=== PATIENT | male | born 1930 | race Caucasian/White ===

== ENCOUNTER 2017-09-01 18:12 | Inpatient (IN) | payer MEDICARE, BC ==
[~2017-09-01] VITALS: Ht 167.6 cm; Wt 75.5 kg
[2017-09-01 19:00] VITALS: BP 151/63
[2017-09-01 19:03] VITALS: BP 151/63
[2017-09-01 19:33] VITALS: BP 167/64
[2017-09-01 20:10] LABS: BASO # 0.1 x10^3/uL (0.0-0.2); BASO % 1 % (0-3); EOS # 0.2 x10^3/uL (0.0-0.7); EOS % 1 % (0-3); HEMATOCRIT 39.6 % (39.0-53.0); HEMOGLOBIN 13.6 g/dL (13.0-17.5); LYMPH # 2.6 x10^3/uL (1.0-4.8); LYMPH % 17 % (24-48); MEAN CORPUSCULAR HEMOGLOBIN 33 pg (25-35); MEAN CORPUSCULAR HGB CONC 34 g/dL (31-37); MEAN CORPUSCULAR VOLUME 96 fL (79-100); MONO # 1.3 x10^3/uL (0.0-1.1); MONO % 8 % (0-9); NEUT # 11.3 x10^3uL (1.8-7.7); NEUT % 73 % (31-73); PLATELET COUNT 183 x10^3/uL (140-400); RED BLOOD COUNT 4.12 x10^6/uL (4.30-5.70); RED CELL DISTRIBUTION WIDTH 13.8 % (11.5-14.5); WHITE BLOOD COUNT 15.4 x10^3/uL (4.0-11.0)
--- NOTE | 2017-09-01 20:23 | HP ---
ADMIT DATE: 09/01/2017 HISTORY OF PRESENT ILLNESS: The patient is an 86-year-old male patient who was seen today at his primary care physician's office, Dr. Potter and apparently, he was noted to be febrile and also lab work showed his leukocytosis. Apparently, he has seen at multiple places including [place] and there, he was told he has no flu, but Dr. Potter apparently started him on Tamiflu. The patient himself stated that he is just feeling tired, but denied any other complaint. PAST MEDICAL HISTORY: Significant for cervical spinal stenosis, generalized osteoarthritis, dizziness, and lightheadedness, gastroesophageal reflux disease, coronary artery disease, chronic constipation, pure hypercholesterolemia, hypothyroidism, actinic keratosis, angina pectoris, benign prostatic hypertrophy, and recurrent urinary tract infection. He is also known to have essential hypertension, chronic pain syndrome, depressive disorder, keratoconjunctivitis sicca and glaucoma as well as macular degeneration, osteoporosis without pathological fracture, and amnesia. PAST SURGICAL HISTORY: Significant for right knee surgery, partial thyroidectomy, and bilateral cataract extraction. ALLERGIES: I do not have any listing for his allergy. MEDICATIONS: He is currently on following medications: He is on Tylenol 650 mg every 4 hours as needed, amitriptyline 25 mg at bedtime, omega-3 fatty acids 3 capsules by mouth daily, chondroitin sulfate 1 capsule 3 times a day, Ecotrin 81 mg once a day, Fosamax 70 mg every week in the morning at least 30 minutes before first food beverage medications a day, glucosamine sulfate 500 mg 3 times a day, glucosamine chondroitin 1 tablet once a day, Imodium 2 mg tablet every 4 hours as needed. He is on Lotemax 0.5% ophthalmic suspension applied to both eyes daily. He is on Ocuvite 1 tablet once a day, magnesium hydroxide for milk of magnesia 30 mL p.o. daily p.r.n. for constipation, omeprazole 20 mg once a day, simvastatin 40 mg once a day, and Synthroid 112 mcg daily. PHYSICAL EXAMINATION: GENERAL: When I examined him, the patient was resting slightly propped up in bed, in no apparent respiratory distress, pale, but no jaundice, cyanosis, thyromegaly or edema. VITAL SIGNS: Her heart rate was 81, blood pressure 151/63, temperature was 98.1, respiratory rate was 18, and oxygen saturation was 95% on room air. HEAD, EYES, EARS, NOSE, AND THROAT: Showed normocephalic, atraumatic. NECK: Supple. HEART: Showed normal first and second heart sounds. No gallop, rub or murmur. CHEST: Clear to auscultation. No crepitation or rhonchi. ABDOMEN: Distended, soft, and nontender. NEUROLOGIC: He was awake, alert, hard of hearing, but otherwise her cranial nerves are intact. EXTREMITIES: He moves extremities without difficulty. He ambulates without assistance or assistive devices. PLAN: To arrange for him to have a chest x-ray, CBC, CMP, we will do rapid influenza A and B, and we will decide on further management accordingly. ZAIRA MACIAS MD DR: MIRTHA/george JOB#: [id number] / [id number]
[2017-09-01 20:24] LABS: ALBUMIN/GLOBULIN RATIO 0.8 (1.0-1.7); CALCIUM 8.8 mg/dL (8.5-10.1); CREATININE 1.4 mg/dL (0.7-1.3); GFR 48.1; POTASSIUM 3.6 mmol/L (3.5-5.1); TOTAL BILIRUBIN 0.8 mg/dL (0.2-1.0); TOTAL PROTEIN 6.7 g/dL (6.4-8.2)
[2017-09-01] MEDS ORDERED: GLUC-134 PO (21:03)
[2017-09-01] MEDS ORDERED: ASPI-630 PO (21:03)
[2017-09-01] MEDS ORDERED: CYCL1DRO OU (21:03)
[2017-09-01] MEDS ORDERED: LUTE1CAP5 PO (21:03)
[2017-09-01] MEDS ORDERED: OMEP20CA9 PO (21:03)
[2017-09-01] MEDS ORDERED: DEXT15DR5 EACHEYE (21:03)
[2017-09-01] MEDS ORDERED: OSEL75CA13 PO (21:03)
[2017-09-01] MEDS ORDERED: ALEN70TA5 PO (21:03)
[2017-09-01] MEDS ORDERED: OMEG-33 PO (21:03)
[2017-09-01] MEDS ORDERED: ACET325T9 PO (21:03)
[2017-09-01] MEDS ORDERED: LEVO112T4 PO (21:03)
[2017-09-01] MEDS ORDERED: SIMV40TA3 PO (21:03)
[2017-09-01] MEDS ORDERED: LOTE5DRO2 OU (21:03)
[2017-09-01] MEDS ORDERED: DONE5TAB7 PO (21:04)
[2017-09-01] MEDS ORDERED: LOPE2CAP88 PO (21:05)
[2017-09-01] MEDS ORDERED: MAGN400O7 PO (21:05)
--- NOTE | 2017-09-01 21:28 | RAD ---
EXAM: CHEST 1 VIEW History: Fever, leukocytosis COMPARISON: 05/23/2007 TECHNIQUE: Single portable radiograph of the chest FINDINGS: The cardiac silhouette is unremarkable. Scattered calcified granulomas unchanged. The costophrenic sulci are clear and well demarcated. The osseous structures and soft tissues are unremarkable. IMPRESSION: No radiographic evidence of an acute cardiopulmonary process. Electronically signed by: Julito Slater MD (09/01/2017 9:25 PM) [facility]
[2017-09-01 21:31] LABS: INFLUENZA A PATIENT NEGATIVE (NEGATIVE); INFLUENZA B PATIENT NEGATIVE (NEGATIVE)
[2017-09-01 21:40] LABS: % BANDS 1 % (0-9); % BASOS 1 % (0-3); % EOS 1 % (0-5); % LYMPHS 17 % (24-48); % MONOS 7 % (0-10); % MYELOS 1 % (0-0); % SEGS 72 % (35-66); PLT ESTIMATE ADEQUATE (ADEQUATE)
[2017-09-01] MEDS ORDERED: ACETAMINOPHEN 325 MG TABLET PO PRN (22:00)
[2017-09-01] MEDS ORDERED: MAGNESIUM HYDROXIDE 2,400 MG/30 ML ORAL.SUSP. PO PRN (22:00)
[2017-09-01] MEDS ORDERED: LOPERAMIDE 2 MG CAPSULE PO PRN (22:00)
[2017-09-01] MEDS: IV NORMAL SALINE 1,000ML 1,000 ML IV SCH (22:31)
[2017-09-01] MEDS: DONEPEZIL HCL 5 MG TABLET. PO SCH (22:37)
[2017-09-01] MEDS: ATORVASTATIN CALCIUM 20 MG TABLET PO SCH (22:37)
[2017-09-01 23:11] VITALS: BP 166/74
[2017-09-01] MEDS: cefTRIAXone IV Push 1 GM VIAL. IVP SCH (23:40)
[2017-09-02 05:36] VITALS: BP 146/84
[2017-09-02 08:39] LABS: BACTERIA,URINE FEW /HPF (0-FEW); BILIRUBIN,URINE NEG (NEG); CLARITY,URINE CLOUDY; COLOR,URINE YELLOW; GLUCOSE,URINE NEG (NEG); NITRITE,URINE NEG (NEG); RBC,URINE 0 /HPF (0-2); SQUAMOUS EPITHELIAL CELL,UR OCC /LPF; UROBILINOGEN,URINE 0.2 mg/dL (0.2 mg/dL); WBC,URINE 0 /HPF (0-4)
[2017-09-02 08:40] LABS: AMORPHOUS SEDIMENT,UR PRESENT /HPF
[2017-09-02] MEDS: AZITHROMYCIN 250 MG TABLET. PO SCH (10:01)
[2017-09-02] MEDS: ASPIRIN 81 MG TAB.CHEW PO SCH (10:01)
[2017-09-02] MEDS: LEVOTHYROXINE 112 MCG TABLET PO SCH (10:01)
[2017-09-02] MEDS: LACTOBACILLUS RHAMNOSUS GG 1 CAPSULE. PO SCH ×2 (10:01→21:06)
[2017-09-02] MEDS: POLYVINYL ALCOHOL 1.4% OPHTH SOLUTION 15ML BOTTLE. OU SCH ×3 (10:02→21:06)
[2017-09-02] MEDS: LOTEPREDNOL ETAB 0.5% OPHTH SUSPENSION 5ML BOTTLE. OU SCH (10:02)
[2017-09-02] MEDS: cycloSPORINE 0.05% OPTH 1 DROP DROPERETTE OU SCH ×2 (10:02→21:06)
[2017-09-02] MEDS: PANTOPRAZOLE 40 MG TABLET. PO SCH (10:02)
[2017-09-02] MEDS: OMEGA-3 FATTY ACIDS/FISH OIL 1,000 MG CAPSULE. PO SCH ×2 (10:02→21:06)
[2017-09-02] MEDS: GLUCOSAMINE/CHOND 500/400MG CAPSULE PO SCH (10:02)
[2017-09-02] MEDS: MULTIVITAMIN I-VITE TABLET. PO SCH (10:02)
[2017-09-02 11:14] VITALS: BP 164/71
[2017-09-02] MEDS: IV NORMAL SALINE 1,000ML 1,000 ML IV SCH (11:56)
[2017-09-02 15:49] VITALS: BP 170/82
[2017-09-02 19:10] VITALS: BP 166/71
[2017-09-02] MEDS: ATORVASTATIN CALCIUM 20 MG TABLET PO SCH (21:06)
[2017-09-02] MEDS: DONEPEZIL HCL 5 MG TABLET. PO SCH (21:06)
[2017-09-02 22:45] VITALS: BP 160/68
[2017-09-02] MEDS: cefTRIAXone IV Push 1 GM VIAL. IVP SCH (23:27)
[2017-09-03] MEDS: IV NORMAL SALINE 1,000ML 1,000 ML IV SCH ×2 (00:40→14:00)
[2017-09-03] MEDS: LEVOTHYROXINE 112 MCG TABLET PO SCH (06:22)
[2017-09-03 06:26] VITALS: BP 150/84
[2017-09-03 06:38] LABS: HEMATOCRIT 39.4 % (39.0-53.0); HEMOGLOBIN 13.8 g/dL (13.0-17.5); RED BLOOD COUNT 4.1 x10^6/uL (4.30-5.70); WHITE BLOOD COUNT 10.7 x10^3/uL (4.0-11.0)
[2017-09-03 06:49] LABS: ALBUMIN 2.8 g/dL (3.4-5.0); ALBUMIN/GLOBULIN RATIO 0.7 (1.0-1.7); C REACTIVE PROTEIN 121.4 mg/L (0-3.3); CALCIUM 8.6 mg/dL (8.5-10.1); GFR 70.8; POTASSIUM 3.7 mmol/L (3.5-5.1); TOTAL BILIRUBIN 0.7 mg/dL (0.2-1.0); TOTAL PROTEIN 6.8 g/dL (6.4-8.2)
[2017-09-03] MEDS: ASPIRIN 81 MG TAB.CHEW PO SCH (07:55)
[2017-09-03] MEDS: cycloSPORINE 0.05% OPTH 1 DROP DROPERETTE OU SCH (07:55)
[2017-09-03] MEDS: LACTOBACILLUS RHAMNOSUS GG 1 CAPSULE. PO SCH (07:55)
[2017-09-03] MEDS: POLYVINYL ALCOHOL 1.4% OPHTH SOLUTION 15ML BOTTLE. OU SCH ×2 (07:55→14:00)
[2017-09-03] MEDS: OMEGA-3 FATTY ACIDS/FISH OIL 1,000 MG CAPSULE. PO SCH (07:55)
[2017-09-03] MEDS: PANTOPRAZOLE 40 MG TABLET. PO SCH (07:55)
[2017-09-03] MEDS: AZITHROMYCIN 250 MG TABLET. PO SCH (07:55)
[2017-09-03] MEDS: GLUCOSAMINE/CHOND 500/400MG CAPSULE PO SCH (07:55)
[2017-09-03] MEDS: LOTEPREDNOL ETAB 0.5% OPHTH SUSPENSION 5ML BOTTLE. OU SCH (07:55)
[2017-09-03] MEDS: MULTIVITAMIN I-VITE TABLET. PO SCH (07:55)
--- NOTE | 2017-09-03 09:49 | PN ---
DATE: 09/02/2017 SUBJECTIVE: The patient is resting slightly propped up in bed, in no apparent distress. On questioning him, he denied any complaint. The nursing staff stated that his family are concerned that his dementia is progressing and he is driving his car and he might be dangerous to himself and to the public, and his family wanted Dr. James to evaluate him as they feel that his dementia has progressed. PHYSICAL EXAMINATION: GENERAL: When I examined him, he looked well and was clearly in no apparent respiratory distress, pale, but no jaundice, cyanosis, or thyromegaly. No jugular venous distention. No limb edema. VITAL SIGNS: His heart rate was 76, blood pressure 164/71, temperature was 97.3, respiratory rate 20, and oxygen saturation was 94%. HEAD, EYES, EARS, NOSE, AND THROAT: Normocephalic, atraumatic. NECK: Supple. HEART: Showed normal first and second heart sounds. No gallop, rub, or murmur. CHEST: Clear to auscultation. No crepitation or rhonchi. ABDOMEN: Distended, soft, nontender. No guarding or rigidity. No organomegaly. All hernial orifices intact. Bowel sounds normal. NEUROLOGIC: He was awake, alert, responding appropriately. Cranial nerves intact. He moves extremities without difficulty, ambulates without assistance or assistive devices. LABORATORY DATA: His white cell count was , hemoglobin 13.6, hematocrit 39, MCV 96, and platelet count 283,000. His chemistry showed serum sodium of 138, potassium 3.6, chloride 104, bicarbonate 25, anion gap of 9, BUN 20, creatinine 1.4, estimated GFR was mL per minute. Glucose 105, calcium was 8.8. Total bilirubin, AST, ALT, alkaline phosphatase were normal. Total protein 6.7, albumin 3. Urinalysis was essentially unremarkable. It was negative for nitrite, leukocyte esterase, no WBCs, and very few bacteria. His influenza A and B were negative. His chest x-ray also was unremarkable and showed that the cardiac silhouette is unremarkable, scattered calcified granulomas unchanged. The costophrenic angles are clear and well demarcated. The osseous structures and soft tissues are unremarkable. ASSESSMENT: This is an 86-year-old male patient who was admitted with fever and leukocytosis. He has no obvious source of infection. He was afebrile throughout his stay as he apparently has had some cough before we treat him with possible tracheobronchitis. He has multiple other medical problems including generalized osteoarthritis, hypertension, chronic pain syndrome, benign prostatic hypertrophy, hypothyroidism, hypercholesterolemia, chronic constipation, and advanced dementia that according to the family is advancing. I will arrange for Dr. James to evaluate him and if remains stable, we will discharge him home tomorrow. ZAIRA MACIAS MD DR: MIRTHA/george JOB#: [id number] / [id number]
--- NOTE | 2017-09-03 09:55 | PDOC ---
Exam Note: Dwain Note: Please also refer to the separate dictated note~for this date of service dictated separately.~Patient seen individually. Discussed the patient with Nursing staff reviewed the chart.~Reviewed interim history and current functioning. Reviewed vital signs,~Labs/ Radiology~and current medications noted below. Continue current treatment with the changes noted in the dictated addendum note. This is a late entry for date of service Aug Assessment: Vital Signs: VS - Last 72 Hours, by Label Date Time Temp Pulse Resp B/P (MAP) Pulse Ox O2 Delivery O2 Flow Rate FiO2 09/03/17 08:00 Room Air 09/03/17 06:26 97.4 80 20 150/84 (106) 93 Room Air 09/02/17 22:45 98.1 104 20 160/68 (98) 92 Room Air 09/02/17 20:00 Room Air 09/02/17 19:10 97.7 94 20 166/71 (102) 97 Room Air 09/02/17 15:49 97.3 85 20 170/82 (111) 95 Room Air 09/02/17 11:14 97.3 76 20 164/71 (102) 94 Room Air 09/02/17 08:50 Room Air 09/02/17 05:36 97.6 82 20 146/84 (104) 96 Room Air 09/01/17 23:11 97.7 77 18 166/74 (104) 97 Room Air 09/01/17 20:00 Room Air 09/01/17 19:33 97.8 79 18 167/64 (98) 96 Room Air 09/01/17 19:03 98.1 81 20 151/63 (92) 95 Room Air 09/01/17 19:00 98.1 81 20 151/63 (92) 95 Room Air Vital Signs Date Time Temp Pulse Resp B/P (MAP) Pulse Ox O2 Delivery O2 Flow Rate FiO2 09/03/17 08:00 Room Air 09/03/17 06:26 97.4 80 20 150/84 (106) 93 I&O Intake and Output 09/03/17 07:00 Intake Total 2392 ml Balance 2392 ml Intake Oral 1220 ml IV Total 1172 ml # Voids 6 Labs: Laboratory Tests Test 09/02/17 11:21 09/03/17 05:43 Glucose (Fingerstick) 105 mg/dL (70-99) H White Blood Count 10.7 x10^3/uL (4.0-11.0) Red Blood Count 4.10 x10^6/uL (4.30-5.70) L Hemoglobin 13.8 g/dL (13.0-17.5) Hematocrit 39.4 % (39.0-53.0) Mean Corpuscular Volume 96 fL (79-100) Mean Corpuscular Hemoglobin 34 pg (25-35) Mean Corpuscular Hemoglobin Concent 35 g/dL (31-37) Red Cell Distribution Width 14.0 % (11.5-14.5) Platelet Count 193 x10^3/uL (140-400) Erythrocyte Sedimentation Rate 42 (0-15) H Sodium Level 139 mmol/L (136-145) Potassium Level 3.7 mmol/L (3.5-5.1) Chloride Level 106 mmol/L (98-107) Carbon Dioxide Level 25 mmol/L (21-32) Anion Gap 8 (6-14) Blood Urea Nitrogen 12 mg/dL (8-26) Creatinine 1.0 mg/dL (0.7-1.3) Estimated GFR (Cockcroft-Gault) 70.8 BUN/Creatinine Ratio 12 (6-20) Glucose Level 98 mg/dL (70-99) Calcium Level 8.6 mg/dL (8.5-10.1) Total Bilirubin 0.7 mg/dL (0.2-1.0) Aspartate Amino Transferase (AST) 31 U/L (15-37) Alanine Aminotransferase (ALT) 28 U/L (16-63) Alkaline Phosphatase 48 U/L (46-116) C-Reactive Protein 121.4 mg/L (0-3.3) H Total Protein 6.8 g/dL (6.4-8.2) Albumin 2.8 g/dL (3.4-5.0) L Albumin/Globulin Ratio 0.7 (1.0-1.7) L Current Medications: Meds: Intake and Output 09/03/17 07:00 Intake Total 2392 ml Balance 2392 ml Intake Oral 1220 ml IV Total 1172 ml # Voids 6 Current Medications Acetaminophen (Tylenol) 650 mg PRN Q4HRS PRN PO PAIN / TEMP Last administered on 09/01/17at 22:43; Start 09/01/17 at 22:00 Aspirin (Children'S Aspirin) 81 mg DAILY PO Last administered on 09/03/17at 07: 55; Start 09/02/17 at 09:00 Cyclosporine (Restasis) 1 drop BID OU Last administered on 09/03/17at 07:55; Start 09/02/17 at 09:00 Donepezil HCl (Aricept) 5 mg HS PO Last administered on 09/02/17at 21:06; Start 09/01/17 at 22:30 Levothyroxine Sodium (Synthroid) 112 mcg DAILYAC PO Last administered on at 06:22; Start 09/02/17 at 07:30 Loperamide HCl (Imodium) 2 mg PRN DAILY PRN PO DIARRHEA; Start 09/01/17 at 22: 00 Loteprednol Etabonate (Lotemax) 1 drop DAILY OU Last administered on 09/03/17at 07:55; Start 09/02/17 at 09:00 Magnesium Hydroxide (Milk Of Magnesia) 2,400 mg PRN DAILY PRN PO CONSTIPATION; Start 09/01/17 at 22:00 Atorvastatin Calcium (Lipitor) 20 mg QHS PO Last administered on 09/02/17at 21: 06; Start 09/01/17 at 22:30 Alendronate Sodium (Fosamax) 70 mg QM PO ; Start 09/05/17 at 16:00; Status Cancel Artificial Tears (Artificial Tears) 1 drop TID OU Last administered on at 07:55; Start 09/02/17 at 09:00 Glucosamine/ Chondroitin (Glucosamine-Chondroitin 500/400mg) 1 cap DAILY PO Last administered on 09/03/17at 07:55; Start 09/02/17 at 09:00 Multivitamins/ Minerals (I-Raghav) 1 tab DAILY PO Last administered on 09/03/17at 07:55; Start 09/02/17 at 09:00 Fish Oil (Fish Oil) 1,000 mg BID PO Last administered on 09/03/17at 07:55; Start 09/02/17 at 09:00 Pantoprazole Sodium (Protonix) 40 mg DAILYAC PO Last administered on 09/03/17at 07:55; Start 09/02/17 at 07:30 Sodium Chloride 1,000 ml @ 75 mls/hr [id number] IV Last administered on at 11:56; Start 09/01/17 at 22:00 Ceftriaxone Sodium 1 gm/ Sodium Chloride 50 ml @ 100 mls/hr Q24H IV ; Start at 23:00; Stop 09/01/17 at 23:00; Status DC Azithromycin (Zithromax) 500 mg DAILY PO Last administered on 09/03/17at 07:55; Start 09/02/17 at 09:00 Ceftriaxone Sodium (Rocephin) 1 gm Q24H IVP Last administered on 09/02/17at 23: 27; Start 09/01/17 at 23:00 Lactobacillus Rhamnosus (Culturelle) 1 cap BID PO Last administered on at 07:55; Start 09/02/17 at 09:00 Active Scripts Active Reported Imodium A-D (Loperamide HCl) 2 Mg Capsule 2 Mg PO PRN DAILY PRN Milk Of Magnesia (Magnesium Hydroxide) 400 Mg/5 Ml Oral.susp 2,400 Mg PO PRN DAILY PRN Donepezil Hcl 5 Mg Tablet 5 Mg PO HS Ocuvite Lutein 25-5 mg Softgel (Lutein/Zeaxanthin) 1 Each Capsule 1 Each PO DAILY Artificial Tears Eye Drops (Dextran 70/Hypromellose) 15 Ml Drops 1 Drop EACHEYE TID Lotemax (Loteprednol Etabonate) 5 Ml Drops.susp 1 Drop OU DAILY Alendronate Sodium 70 Mg Tablet 70 Mg PO QM Omeprazole 20 Mg Capsule.dr 20 Mg PO DAILYAC Simvastatin 40 Mg Tablet 40 Mg PO HS Glucosamine-Chondr Complex Tab (Glucosam/Chond/MSM/[place]/Hyal) 1 Each Tablet 1 Each PO DAILY [place] 3 1,000 Mg Softgel ([place]-3 Fatty Acids/Fish Oil) 1 Each Capsule 1 Each PO BID Aspirin 81 Mg Tab.chew 81 Mg PO DAILY Tylenol (Acetaminophen) 325 Mg Tablet 650 Mg PO PRN Q4HRS PRN Levothyroxine Sodium 112 Mcg Tablet 112 Mcg PO DAILYAC Restasis (Cyclosporine) 1 Each Droperette 1 Drop OU BID Oseltamivir Phosphate 75 Mg Capsule 75 Mg PO BID 5 Days pt has already taken first dose this am I have reviewed the current psychotropics carefully including drug interactions. Risk benefit ratio favors no change other than as noted in my dictated progress note. Diagnosis: Problems: (1) Anxiety disorder (2) Impulse control disorder (3) Dementia, vascular, with depression IMANI PARTIDA MD Sep 03, 2017 09:55
[2017-09-03 11:35] VITALS: BP 159/74
--- NOTE | 2017-09-03 11:56 | RAD ---
EXAM: CT head without contrast. HISTORY: Memory loss. TECHNIQUE: Computed tomography of the head was performed without intravenous contrast. COMPARISON: None. FINDINGS: There is no intracranial hemorrhage. Hypoattenuation within the periventricular white matter indicates moderate chronic small vessel ischemic change. Prominence of the lateral ventricles and hemispheric sulci indicate moderate atrophy. The visualized paranasal sinuses appear clear. The orbits are unremarkable. The temporal bones are unremarkable. The calvarium reveals no suspicious lesions. IMPRESSION: 1. No acute intracranial findings. Moderate atrophy and chronic small vessel ischemic white matter change. *One or more of the following individualized dose reduction techniques were utilized for this examination: 1. Automated exposure control. 2. Adjustment of the mA and/or kV according to patient size. 3. Use of iterative reconstruction technique.
[2017-09-03] MEDS ORDERED: AZIT250T PO (15:17)
[2017-09-03] MEDS ORDERED: CEFP200T PO (15:17)
--- NOTE | 2017-09-04 01:14 | CONS ---
DATE OF CONSULTATION: 09/03/2017 IDENTIFYING DATA: The patient is an 86-year-old male seen in bed #107, [facility], for a psychiatric consult requested by Dr. Singh. At the family's request to assess the patient's cognitive decline, memory deficits, and make recommendations as the patient is still driving while residing at the assisted living [facility] in [place], [place] with his . Apparently, he forgets directions at times and there is a concern in this respect with safety. CHIEF COMPLAINT: "My memory is okay." HISTORY OF PRESENT ILLNESS: The patient reportedly was seen at his primary care physician, Dr. Potter's office on 09/01/2017, noted to be afebrile. Lab work showed leukocytosis. He complained of feeling tired. Previous workup at [facility] amongst others, and had been on Tamiflu as well. Nevertheless, he has been admitted for workup of as noted above even though, no clear cause for this had been found and recent workup. According to the information from nursing staff obtained from the family. The patient does have some short-term memory deficits, confusion finding his way around while driving. The patient denies having had any accidents, minimizes any memory deficits, however. He states his sleep is fair. Appetite is fair. No psychotic symptoms, suicidal or homicidal ideation. No clear history of bipolar disorder. PAST PSYCHIATRIC HISTORY: Positive for short-term memory deficits. PAST MEDICAL HISTORY: In addition to what is noted above, he has a history of cervical spinal stenosis, osteoarthritis, dizziness, lightheadedness, GERD, coronary artery disease, chronic constipation, hypercholesterolemia, hypothyroidism, actinic keratosis, angina pectoris, BPH, recurrent UTIs, hypertension, chronic pain, keratoconjunctivitis sicca, glaucoma, macular degeneration, osteoporosis without pathological fracture and short term memory deficits. PAST SURGICAL HISTORY: Right knee surgery, partial thyroidectomy, and bilateral cataract extractions. DRUG ALLERGIES: Negative. FAMILY HISTORY: Noncontributory. SOCIAL HISTORY: No alcohol or drug abuse history. 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 Currently resides at [facility] with his . CURRENT PSYCHOTROPICS: Amitriptyline 25 mg p.o. at bedtime. He is also on Synthroid 112 mcg a day. MENTAL STATUS EXAMINATION: The patient was seen individually evening of 09/02/2017. He was able to tell me the date, 09/02/2017, but it seemed like he looked at the calendar, which was in front of him. However, when I asked him where he was, he knew he was in [place], [place], but did not know that this was a hospital, felt it was a longterm, did not know the name of the facility either. He was able to do two steps on serial sevens able to spell world forward and backward with no errors. Speech is coherent. Thought processes goal directed. No active psychotic symptoms, suicidal or homicidal ideation. Attention span is reasonable for age. REVIEW OF SYSTEMS: No CV, , pulmonary, eye, ENT system symptoms on review. IMPRESSION: Cognitive disorder, unspecified versus mild cognitive impairment, rule out major neurocognitive disorder, early vascular, rest as above. PLAN: Lengthy discussion with the patient, though he minimizes most problems and minimizes for getting directions while driving. However, given the concerns raised by the family and the fact that he forgets directions in which way to turn while driving. I would recommend that he not drive until the workup detailed below is completed. This would include serum folate, B12, a CT head to work for any atrophy. We will also check a TSH to make thyroids to ensure thyroid status is stable. He may need neuropsychological testing/cognitive testing, which may be completed at the [facility] to further objectively determine the level of his memory deficits and if needed, neuropsychological testing done at [facility] if the service is not available at the [facility]. Given the fact that in all likelihood, some of his short term memory deficits are more vascular in nature than Alzheimers'. I would not necessarily recommend adding cholinesterase inhibitors or Namenda at this stage. We may consider discontinuing amitriptyline as central anticholinergic side effects may in some minimal manner worsen some of his memory deficits, but for now, we will continue while the workup is in progress. Dr. Singh, thank you for the opportunity to participate in your patient's care. We will follow with you. This note covers the elements not covered in my initial note of 09/02/2017. MAN Marilyn PARTIDA MD DR: Maria Eugenia JOB#: [id number] / [id number]
--- NOTE | 2017-09-04 04:13 | PN ---
DATE: 09/03/2017 SUBJECTIVE: The patient is an 86-year-old male patient who was seen at his primary care physician, noted to be febrile and has leukocytosis. He was admitted directly. On questioning him further, he stated that he has cough, but denied any chest pain or shortness of breath. We have extensively investigated him here and in fact we did influenza A and B, were negative. His nasal screen for MRSA by PCR was negative. Urinalysis was unremarkable. His chest x-ray showed no convincing evidence that he has pneumonia; however, we treated him with Zithromax and Rocephin for possible tracheobronchitis. He remained afebrile throughout his stay here. LABORATORY DATA: His white cell count came down nicely from 17,000 in the office to 10,000 today. His sed rate and C-reactive protein are elevated, although he has no tenderness in the temporal area. Denied any aches and pains or problems with vision and a decision was made to discharge him home to continue the oral antibiotic and I explained to his daughter that he needs to go and see Dr. Klein to repeat his inflammatory markers to make sure that they are trending down. PHYSICAL EXAMINATION: GENERAL: When I saw him this afternoon, he looked well and was clearly in no apparent respiratory distress, pale, but no jaundice, cyanosis, some thyromegaly. No jugular venous distention. No limb edema. VITAL SIGNS: His heart rate was 74, blood pressure 159/74, temperature was 97.8, respiratory rate was 20, and oxygen saturation was 97%. HEAD, EYES, EARS, NOSE AND THROAT: Normocephalic, atraumatic. NECK: Supple. HEART: Showed normal first and second sounds. No gallop, rub or murmur. CHEST: Clear to auscultation. No crepitation or rhonchi. ABDOMEN: Distended, soft, nontender. No guarding or rigidity. No organomegaly. Hernial orifice intact. Bowel sounds normal. NEUROLOGIC: He was awake, alert, responding appropriately. Cranial nerves intact. He moves upper extremities without difficulty. Lab work as of this morning showed a white cell count of 10,700, hemoglobin 13.8, hematocrit 39, MCV 96, and platelet count of 193,000. Sed rate was 42 mm per hour. His chemistry showed a serum sodium 139, potassium 3.7, chloride 106, bicarbonate 25, anion gap of 8, BUN 12, creatinine 1, estimated GFR was 71 mL per minute. His glucose was 98, calcium was 8.6. Total bilirubin, AST, ALT, alkaline phosphatase were normal. Total protein 6.8, albumin 2.8 and his C-reactive protein was high at 121 mg/dL. The patient was discharged home to continue on Zithromax 250 mg once a day for 7 days and cefpodoxime proxetil 200 mg twice a day for 7 days. He should continue with all other medication including acetaminophen 650 mg every 4 hours as needed, alendronate 70 mg once a week, aspirin 81 mg once a day, Restasis 1 drop to both eyes twice a day, and artificial tears 1 drop to both eyes 3 times a day, Aricept 5 mg at bedtime, glucosamine chondroitin sulfate 1 tablet once a day, levothyroxine 112 mcg once a day, loperamide 2 mg as needed, Lotemax 1 drop to both eyes daily, Ocuvite tablet 1 capsule once a day, magnesium hydroxide for Milk of Magnesia 30 mL p.o. daily p.r.n. for constipation, omega 3 fatty acid, fish oil twice a day, omeprazole 20 mg once a day, simvastatin 40 mg at bedtime. ZAIRA MACIAS MD DR: MIRTHA/george JOB#: [id number] / [id number]
[2017-09-05] MEDS ORDERED: ALENDRONATE SODIUM 35 MG TABLET PO SCH (16:00)
== END 2017-09-03 16:15 | disposition home or self-care (01) | DRG 682 ==
LOC: 1 SOUTH 18:12
PROVIDERS: ADMIT Internal Medicine; ATTEND Internal Medicine
DX: N17.0 Acute kidney failure with tubular necrosis (principal); E43 Unspecified severe protein-calorie malnutrition; J40 Bronchitis, not specified as acute or chronic; F01.50 Vascular dementia, unspecified severity, without behavioral disturbance, psychotic disturbance, mood disturbance, and anxiety; M48.02 Spinal stenosis, cervical region; E03.9 Hypothyroidism, unspecified; N40.0 Benign prostatic hyperplasia without lower urinary tract symptoms; I25.10 Atherosclerotic heart disease of native coronary artery without angina pectoris; E78.00 Pure hypercholesterolemia, unspecified; F32.9 Major depressive disorder, single episode, unspecified; F41.9 Anxiety disorder, unspecified; F63.9 Impulse disorder, unspecified; G89.4 Chronic pain syndrome; H35.30 Unspecified macular degeneration; H40.9 Unspecified glaucoma; I10 Essential (primary) hypertension; K21.9 Gastro-esophageal reflux disease without esophagitis; K59.09 Other constipation; M15.9 Polyosteoarthritis, unspecified; M81.0 Age-related osteoporosis without current pathological fracture; Z87.440 Personal history of urinary (tract) infections; Z98.41 Cataract extraction status, right eye; Z98.42 Cataract extraction status, left eye; Z88.8 Allergy status to other drugs, medicaments and biological substances
CPT/HCPCS: 36415; 70450; 71045; 80053; 81001; 82607; 82746; 82947; 84443; 85007; 85025; 85027; 85651; 86140; 87641; 87804; J0456; J0696; J7030

== ENCOUNTER 2019-04-25 11:04 | Emergency (ER) | payer MEDICARE, BC ==
[~2019-04-25] VITALS: Ht 167.6 cm; Wt 73.3 kg
[~2019-04-25 11:04] MED LIST: ACET325T9 PO; ALEN70TA6 PO; ASPI-630 PO; AZIT250T PO; CEFP200T PO; CYCL1DRO OU; DEXT15DR5 EACHEYE; DONE5TAB7 PO; GLUC-134 PO; LEVO112T4 PO; LOPE-101 PO; LOTE5DRO2 OU; LUTE1CAP5 PO; MAGN400O7 PO; OMEG-33 PO; OMEP20CA10 PO; OSEL75CA13 PO; SIMV40TA3 PO
[2019-04-25] MEDS ORDERED: IV NORMAL SALINE 1,000ML 1,000 ML IV ONE (11:30)
--- NOTE | 2019-04-25 11:52 | EKG ---
[address] [address] Test Date: 2019-04-25 Test Time: 11:49:59 Pat Name: IFEANYI RAMIREZ Department: Room: Gender: M Gambling Monitor: ESTEFANI : 1930 Requested By: RENETTA WHITTAKER Order Number: [id number] Reading MD: Lb Jaffe MD Measurements Intervals [place] Rate: 79 P: 19 MT: 196 QRS: -63 QRSD: 124 T: -5 QT: 404 QTc: 470 Interpretive Statements SINUS RHYTHM 1ST DEGREE AVB RBBB Electronically Signed On 05-01-2019 11:41:02 CDT by Lb Jaffe MD
[2019-04-25 11:55] LABS: BASO # 0.1 x10^3/uL (0.0-0.2); BASO % 1 % (0-3); EOS # 0.3 x10^3/uL (0.0-0.7); EOS % 2 % (0-3); HEMATOCRIT 43.1 % (39.0-53.0); HEMOGLOBIN 14.9 g/dL (13.0-17.5); LYMPH # 2.7 x10^3/uL (1.0-4.8); LYMPH % 23 % (24-48); MEAN CORPUSCULAR HEMOGLOBIN 34 pg (25-35); MEAN CORPUSCULAR HGB CONC 35 g/dL (31-37); MEAN CORPUSCULAR VOLUME 98 fL (79-100); MONO % 9 % (0-9); NEUT # 7.5 x10^3uL (1.8-7.7); NEUT % 64 % (31-73); PLATELET COUNT 252 x10^3/uL (140-400); RED CELL DISTRIBUTION WIDTH 14.3 % (11.5-14.5); WHITE BLOOD COUNT 11.6 x10^3/uL (4.0-11.0)
--- NOTE | 2019-04-25 12:18 | RAD ---
PORTABLE CHEST 1V 04/25/2019 11:27 AM INDICATION: Altered mental status COMPARISON: 09/01/2017 TECHNIQUE: Portable frontal view of the chest is provided. FINDINGS: The cardiomediastinal silhouette is similar in appearance. Lungs are clear. There are no significant pleural effusions. There is no pulmonary vascular congestion. No pneumothorax. IMPRESSION: There is no acute cardiopulmonary process. Electronically signed by: Beronica Cox MD (04/25/2019 12:15 PM) [facility]
[2019-04-25 12:22] LABS: MAGNESIUM 1.9 mg/dL (1.8-2.4)
--- NOTE | 2019-04-25 12:29 | RAD ---
PQRS Compliance Statement: One or more of the following individualized dose reduction techniques were utilized for this examination: 1. Automated exposure control 2. Adjustment of the mA and/or kV according to patient size 3. Use of iterative reconstruction technique CT head and cervical spine without contrast 04/25/2019 11:27 AM INDICATION: Altered mental status with history of fall COMPARISON: Head CT 09/03/2017 TECHNIQUE: Multiple axial CT images of the head were obtained from skull base through the vertex without intravenous contrast. Multiple axial CT images of the cervical spine were obtained without intravenous contrast. Coronal and sagittal reformats are provided. FINDINGS: Head: Ventricles, sulci and basal cisterns are within normal limits. Low-attenuation in the periventricular white matter is suggestive of chronic small vessel ischemic changes. There is no hydrocephalus. Omalley-white matter differentiation is normal. There is no acute intracranial hemorrhage. There is no mass, mass effect or midline shift. Posterior fossa is normal in appearance. Visualized portions of the orbits are normal. Paranasal sinuses are well aerated. Mastoid air cells are well aerated. Scalp and calvaria are normal. Cervical spine: Skull base is intact. Craniocervical junction is normal in appearance. Atlantoaxial articulation is normal. Vertebral body heights are maintained without evidence for acute fracture. No significant spondylolisthesis. Laminectomy changes are identified from C3 through C6. There is moderate multilevel facet arthropathy. There is a posterior disc osteophyte complex at C6-C7 with mild facet arthropathy and moderate uncovertebral joint disease resulting in moderate to severe right and moderate left neuroforaminal stenosis and mild/moderate spinal canal stenosis. No residual spinal canal stenosis is visualized. Moderate to severe facet arthropathy. There is severe disc height loss at C5-C6 and C6-C7 with marginal osteophytosis. There is biapical pleural parenchymal scarring involving the lungs. No suspicious paraspinal soft tissue abnormality is identified. Thyroid gland is normal in appearance. IMPRESSION: 1. No acute intracranial hemorrhage. Low-attenuation in the periventricular white matter is suggestive of chronic small vessel ischemic changes. 2. No acute fracture or malalignment of the cervical spine. Moderate to severe cervical spondylosis with laminectomy decompression from C3 through C6. Electronically signed by: Beronica Cox MD (04/25/2019 12:26 PM) [facility]
--- NOTE | 2019-04-25 12:44 | PHYS DOC ---
Past History Past Medical History: Dementia, GERD, Hypertension, Hypothyroid Past Medical History Limited due to dementia Past Surgical History: No Surgical History Past Surgical History Limited due to dementia Smoking: Quit Greater Than 1 Year Alcohol Use: None Drug Use: None Social History Limited due to dementia Adult General Chief Complaint Chief Complaint: ALTERED MENTAL STATUS HPI HPI 88-year-old male presents to the emergency department with his family members with concern for increased falls over the last week. Patient with past medical history of dementia and therefore history of present illness limited. Family reports it seems as if his legs give out. Reports concern for increased weakness to right lower extremity in comparison to left. Family also reports patient's mentation is slightly different than normal. Patient denies any dysuria or hematuria. Denies known fever or chills. Denies cough. Review of Systems Review of Systems Constitutional: Denies fever or chills Respiratory: Denies cough or shortness of breath Cardiovascular: Denies chest pain or palpitations GI: Denies abdominal pain, nausea, or vomiting Neurologic: Reports generalized weakness Review of systems limited due to dementia Current Medications Current Medications Current Medications Medications (Trade) Dose Ordered Sig/Layla Start Time Stop Time Status Last Admin Dose Admin Sodium Chloride 1,000 ml @ 1,000 mls/hr 1X ONCE 04/25/19 11:30 04/25/19 12:29 DC 04/25/19 11:30 1,000 MLS/HR Allergies Allergies Allergies Coded Allergies Type Severity Reaction Last Updated Verified amoxicillin Allergy Intermediate 09/02/17 Yes heparin Allergy Intermediate 09/02/17 Yes ibuprofen Allergy Intermediate 09/02/17 Yes Uncoded Allergies Type Severity Reaction Last Updated Verified anticoagulants Allergy Unknown 04/25/19 Physical Exam Physical Exam Constitutional: Well developed, well nourished, no acute distress, non-toxic appearance HENT: Normocephalic, atraumatic, oropharynx moist Eyes: PERRL, EOMI, conjunctiva normal, no discharge Neck: Normal range of motion, no tenderness, supple, no meningeal signs Cardiovascular: Heart rate normal, regular rhythm Lungs & Thorax: Bilateral breath sounds clear to auscultation, no wheezing Abdomen: Soft, no tenderness Skin: Warm, dry, no erythema, no rash, steri strips noted to dorsum of right hand (hx of skin tear to area) Extremities: No tenderness, ROM intact, no edema, straight arm and leg raise normal Neurologic: Alert and oriented X 2 (confused to date), normal motor function, normal sensory function, no focal deficits noted Psychologic: Affect normal, judgement abnormal- poor short term memory Current Patient Data Vital Signs Vital Signs Date Time Temp Pulse Resp B/P (MAP) Pulse Ox O2 Delivery O2 Flow Rate FiO2 04/25/19 11:34 99.2 90 18 96 Room Air 04/25/19 11:33 152/89 (110) Lab Results Laboratory Tests Test 04/25/19 11:40 White Blood Count 11.6 x10^3/uL (4.0-11.0) H Red Blood Count 4.40 x10^6/uL (4.30-5.70) Hemoglobin 14.9 g/dL (13.0-17.5) Hematocrit 43.1 % (39.0-53.0) Mean Corpuscular Volume 98 fL (79-100) Mean Corpuscular Hemoglobin 34 pg (25-35) Mean Corpuscular Hemoglobin Concent 35 g/dL (31-37) Red Cell Distribution Width 14.3 % (11.5-14.5) Platelet Count 252 x10^3/uL (140-400) Neutrophils (%) (Auto) 64 % (31-73) Lymphocytes (%) (Auto) 23 % (24-48) L Monocytes (%) (Auto) 9 % (0-9) Eosinophils (%) (Auto) 2 % (0-3) Basophils (%) (Auto) 1 % (0-3) Neutrophils # (Auto) 7.5 x10^3uL (1.8-7.7) Lymphocytes # (Auto) 2.7 x10^3/uL (1.0-4.8) Monocytes # (Auto) 1.0 x10^3/uL (0.0-1.1) Eosinophils # (Auto) 0.3 x10^3/uL (0.0-0.7) Basophils # (Auto) 0.1 x10^3/uL (0.0-0.2) Prothrombin Time 10.4 SEC (9.4-11.4) Prothrombin Time INR 1.0 (0.9-1.1) Activated Partial Thromboplast Time 24 SEC (23-33) Lactic Acid Level 2.2 mmol/L (0.4-2.0) H Magnesium Level 1.9 mg/dL (1.8-2.4) Ammonia < 10 mcmol/L (11-34) L Creatine Kinase 134 U/L (39-308) Creatine Kinase MB (Mass) 1.8 ng/mL (0.0-3.6) Creatine Kinase MB Relative Index 1.3 % (0-4) Troponin I Quantitative < 0.017 ng/mL (0-0.055) EKG EKG @1149 NSR at 79bpm, Bifascicular block, NO ST elevation Radiology/Procedures Radiology/Procedures PROCEDURE: [facility] Statement: One or more of the following individualized dose reduction techniques were utilized for this examination: 1. Automated exposure control 2. Adjustment of the mA and/or kV according to patient size 3. Use of iterative reconstruction technique CT head and cervical spine without contrast 04/25/2019 11:27 AM INDICATION: Altered mental status with history of fall COMPARISON: Head CT 09/03/2017 TECHNIQUE: Multiple axial CT images of the head were obtained from skull base through the vertex without intravenous contrast. Multiple axial CT images of the cervical spine were obtained without intravenous contrast. Coronal and sagittal reformats are provided. FINDINGS: Head: Ventricles, sulci and basal cisterns are within normal limits. Low-attenuation in the periventricular white matter is suggestive of chronic small vessel ischemic changes. There is no hydrocephalus. Omalley-white matter differentiation is normal. There is no acute intracranial hemorrhage. There is no mass, mass effect or midline shift. Posterior fossa is normal in appearance. Visualized portions of the orbits are normal. Paranasal sinuses are well aerated. Mastoid air cells are well aerated. Scalp and calvaria are normal. Cervical spine: Skull base is intact. Craniocervical junction is normal in appearance. Atlantoaxial articulation is normal. Vertebral body heights are maintained without evidence for acute fracture. No significant spondylolisthesis. Laminectomy changes are identified from C3 through C6. There is moderate multilevel facet arthropathy. There is a posterior disc osteophyte complex at C6-C7 with mild facet arthropathy and moderate uncovertebral joint disease resulting in moderate to severe right and moderate left neuroforaminal stenosis and mild/moderate spinal canal stenosis. No residual spinal canal stenosis is visualized. Moderate to severe facet arthropathy. There is severe disc height loss at C5-C6 and C6-C7 with marginal osteophytosis. There is biapical pleural parenchymal scarring involving the lungs. No suspicious paraspinal soft tissue abnormality is identified. Thyroid gland is normal in appearance. IMPRESSION: 1. No acute intracranial hemorrhage. Low-attenuation in the periventricular white matter is suggestive of chronic small vessel ischemic changes. 2. No acute fracture or malalignment of the cervical spine. Moderate to severe cervical spondylosis with laminectomy decompression from C3 through C6. Electronically signed by: Beronica Cox MD (04/25/2019 12:26 PM) [facility] PROCEDURE: PORTABLE CHEST 1V PORTABLE CHEST 1V 04/25/2019 11:27 AM INDICATION: Altered mental status COMPARISON: 09/01/2017 TECHNIQUE: Portable frontal view of the chest is provided. FINDINGS: The cardiomediastinal silhouette is similar in appearance. Lungs are clear. There are no significant pleural effusions. There is no pulmonary vascular congestion. No pneumothorax. IMPRESSION: There is no acute cardiopulmonary process. Electronically signed by: Beronica Cox MD (04/25/2019 12:15 PM) [facility] Course & Med Decision Making Course & Med Decision Making Pertinent Labs and Imaging studies reviewed. (See chart for details) Elderly patient with past medical history of dementia presents with report of increased falls over the last week. Family also concerned for decreased mentation. Patient appears to be at his baseline neurologically. NIHSS 0. History of fall a few days ago striking his head. CT head/cervical spine without acute process. Chest x-ray clear. EKG stable. Labs obtained and posted to chart. WBC and lactic acid elevated. Patient does not meet SIRS criteria. IVF hydration given. Ammonia within normal limits. UA without signs of infection. Hypokalemia addressed. Given change in mentation from baseline and increased weakness with concern for frequent falls, recommended admission for further evaluation and treatment. Discussed with Dr. Singh (PCP at [facility]) who is also in agreement with admission. Discussed findings and plan with family, who acknowledge understanding. Family however requesting to be discharge back to [facility]. Reports they feel that given his condition that an inpatient stay may make his symptoms worse. Dr. Singh aware of family's request and in agreement. Dragon Disclaimer Dragon Disclaimer This electronic medical record was generated, in whole or in part, using a voice recognition dictation system. Departure Departure: Impression: Primary Impression: Generalized weakness Additional Impressions: Dementia Elevated lactic acid level Hypokalemia Disposition: HOME, SELF-CARE (Back to [facility]) Condition: STABLE Referrals: ALVINA METZ MD (PCP) CASSIA ELISE MD,ZAIRA Arenas MD Patient Instructions: Dementia, [id number], Hypokalemia-Brief, Lactic Acid, Lactate, Potassium Content of Foods, Weakness, [id number] NIHSS - ED NIH Stroke Scale: NIH Stroke Scale Response (Comments) Value Level of Consciousness: 0 Alert/Responsive 0 LOC Questions: 0 Answers both correctly 0 LOC Commands: 0 Performs both tasks 0 Best Gaze: 0 Normal 0 Visual: 0 No visual loss 0 Facial Palsy: 0 Normal, symmetrical 0 Motor - Left Arm 0 No drift 0 Motor - Right Arm 0 No drift 0 Motor - Left Leg 0 No drift 0 Motor: Right Leg 0 No drift 0 Limb Ataxia: 0 Absent 0 Sensory: 0 No loss 0 Best Language: 0 Normal 0 Dysathria: 0 Normal 0 Extinction and Inattention: 0 Normal 0 Total 0 Problem Qualifiers Additional Impressions: Dementia Dementia type: unspecified type Dementia behavioral disturbance: without behavioral disturbance Qualified Codes: F03.90 - Unspecified dementia without behavioral disturbance RENETTA WHITTAKER DO Apr 25, 2019 12:44
[2019-04-25 13:12] LABS: AMORPHOUS SEDIMENT,UR PRESENT /HPF; BACTERIA,URINE 0 /HPF (0-FEW); BILIRUBIN,URINE NEG (NEG); CLARITY,URINE HAZY; COLOR,URINE AMBER; GLUCOSE,URINE NEG (NEG); NITRITE,URINE NEG (NEG); RBC,URINE RARE /HPF (0-2); UROBILINOGEN,URINE 2 mg/dL (0.2 mg/dL); WBC,URINE RARE /HPF (0-4)
[2019-04-25 13:18] LABS: ALBUMIN 3.1 g/dL (3.4-5.0); ALBUMIN/GLOBULIN RATIO 0.8 (1.0-1.7); CREATININE 1.3 mg/dL (0.7-1.3); GFR 52.1; POTASSIUM 3.2 mmol/L (3.5-5.1); TOTAL BILIRUBIN 0.8 mg/dL (0.2-1.0)
[2019-04-25] MEDS ORDERED: POTASSIUM BICARB 20 MEQ EFFERVESCENT TABLET. PO ONE (14:00)
[2019-04-25 14:08] VITALS: BP 148/84
== END 2019-04-25 14:30 | disposition home or self-care (01) ==
LOC: ER 11:04
DX: F03.90 Unspecified dementia, unspecified severity, without behavioral disturbance, psychotic disturbance, mood disturbance, and anxiety (principal); R53.1 Weakness; E87.6 Hypokalemia; R74.0 Nonspecific elevation of levels of transaminase and lactic acid dehydrogenase [LDH]; R41.0 Disorientation, unspecified; K21.9 Gastro-esophageal reflux disease without esophagitis; I10 Essential (primary) hypertension; E03.9 Hypothyroidism, unspecified; Z87.891 Personal history of nicotine dependence; Z88.1 Allergy status to other antibiotic agents; Z88.6 Allergy status to analgesic agent; Z88.8 Allergy status to other drugs, medicaments and biological substances
CPT/HCPCS: 36415; 70450; 71045; 72125; 80053; 81001; 82140; 82553; 83605; 83735; 84484; 85025; 85610; 85730; 93005; 96360; 99285-25; J7030

== ENCOUNTER 2019-04-26 18:08 | Emergency (ER) | payer MEDICARE, BC ==
[~2019-04-26] VITALS: Ht 167.6 cm; Wt 73.3 kg
--- NOTE | 2019-04-26 19:11 | RAD ---
Exam: CT head INDICATION: Right-sided facial droop TECHNIQUE: Sequential axial images through the head were obtained without the administration of IV contrast. Comparisons: 09/03/2017 FINDINGS: No focal parenchymal lesion or hemorrhage is identified. There is no midline shift or sulcal effacement. Hypodensity within the white matter of the left frontal lobe which is new when compared to the study in 2018. Omalley-white distinction is preserved. The ventricular system is within normal limits without compression hydrocephalus. The basal cisterns are well maintained. The visualized portions of the paranasal sinuses and mastoid air cells are well-pneumatized. No acute fractures. IMPRESSION: Hypodensity in the white matter of the left frontal lobe, new when compared to study in 2018. This may represent an area of subacute or chronic ischemia. Further evaluation with MRI brain without contrast is recommended. Exposure: One or more of the following in the visualized dose reduction techniques were utilized for this examination: 1. Automated exposure control 2. Adjustment of the MA and/or KV according to patient size Use of iterative of reconstructive technique FOR INTERNAL CODING PURPOSES Critical result: Findings discussed with VIDHYA LEWIS at 04/26/2019 7:07 PM. RESULT CODE: (C) Electronically signed by: Radha Calderon MD (04/26/2019 7:08 PM) [facility]
[2019-04-26] MEDS ORDERED: IV NORMAL SALINE 1,000ML 1,000 ML IV SCH (19:15)
[2019-04-26] MEDS ORDERED: ASPIRIN 325 MG TABLET ONE (19:20)
--- NOTE | 2019-04-26 19:20 | PHYS DOC ---
Past History Past Medical History: Dementia, GERD, Hypertension, Hypothyroid Past Surgical History: No Surgical History Smoking: Quit Greater Than 1 Year Alcohol Use: None Drug Use: None Adult General Chief Complaint Chief Complaint: NEURO SYMPTOMS/DEFICITS HPI HPI Patient is an 88-year-old male who presents to the emergency department for evaluation. His family is concerned that they have seen an increasing change in his behavioral status and intermittent weakness of his right side over the past 5 days, which seems to have worsened over the past 24 hours. According to the patient's family he fell a few times over this past weekend, and then began exhibiting some intermittent weakness on his right side over the past few days. However he seemed to get better over the subsequent several days, but seemed to get worse again yesterday. He was apparently seen in this emergency department and evaluated and the decision was made to release the patient home. However the patient's family states that around lunchtime today they got a call from the nursing facility that he was again not acting right and he is having slurred speech and decreased communication. He has increased generalized weakness com pared to what he was seen for yesterday according to the staff that was familiar with the patient from his ER visit yesterday. The patient denies any pain. His last known normal was unknown, but according to the provided history appears to be greater than 8 hours ago. There are no alleviating or exacerbating factors to the patient's symptoms. Select notes and test results and the patient's ER visit yesterday have been reviewed, a urinalysis was done yesterday. There appears to be a new hypodensity on CT scanning today, there was not noted on the CT report from yesterday. Review of Systems Review of Systems Constitutional: Denies fever or chills [] Eyes: Denies change in visual acuity, redness, or eye pain [] HENT: Denies nasal congestion or sore throat [] Respiratory: Denies cough or shortness of breath [] Cardiovascular: No additional information not addressed in HPI [] GI: Denies abdominal pain, nausea, vomiting, bloody stools or diarrhea [] : Denies dysuria or hematuria [] Musculoskeletal: Denies back pain or joint pain [] Integument: Denies rash or skin lesions [] Neurologic: Reports increasing focal weakness on the right side, decreased speech and increased confusion, per family changes [] Endocrine: Denies polyuria or polydipsia [] All other systems were reviewed and found to be within normal limits, except as documented in this note. Allergies Allergies Allergies Coded Allergies Type Severity Reaction Last Updated Verified amoxicillin Allergy Intermediate 09/02/17 Yes heparin Allergy Intermediate 09/02/17 Yes ibuprofen Allergy Intermediate 09/02/17 Yes Uncoded Allergies Type Severity Reaction Last Updated Verified anticoagulants Allergy Unknown 04/25/19 Physical Exam Physical Exam PHYSICAL EXAM: CONSTITUTIONAL: Well developed, well nourished HEAD: normocephalic, atraumatic EENT: PERRL, EOMI. Conjunctivae normal color, sclerae non-icteric; moist mucous membranes. NECK: Supple, non-tender; no meningismus. LUNGS: Lungs CTA, breathing even and unlabored. Normal air movement. HEART: Regular rate and rhythm, no murmur CHEST: No deformity; non-tender ABDOMEN: The abdomen is soft, and non-tender, no masses or bruits. EXTREM: Normal ROM; no deformity, no calf tenderness. Normal pulses palpable in all extremities. There is no pedal edema. SKIN: No rash; no diaphoresis NEURO: Alert; slowing delayed speech, impaired cognition with confusion,; CN's grossly intact; strength grossly intact without focal deficit. Sensation is grossly intact. BACK: No CVA TTP. Current Patient Data Vital Signs Vital Signs Date Time Temp Pulse Resp B/P (MAP) Pulse Ox O2 Delivery O2 Flow Rate FiO2 04/26/19 19:02 97.8 83 18 99 Room Air Lab Results Laboratory Tests Test 04/26/19 19:18 White Blood Count 11.6 x10^3/uL Red Blood Count 4.40 x10^6/uL Hemoglobin 14.8 g/dL Hematocrit 43.5 % Mean Corpuscular Volume 99 fL Mean Corpuscular Hemoglobin 34 pg Mean Corpuscular Hemoglobin Concent 34 g/dL Red Cell Distribution Width 14.5 % Platelet Count 261 x10^3/uL Neutrophils (%) (Auto) 61 % Lymphocytes (%) (Auto) 27 % Monocytes (%) (Auto) 8 % Eosinophils (%) (Auto) 3 % Basophils (%) (Auto) 1 % Neutrophils # (Auto) 7.1 x10^3uL Lymphocytes # (Auto) 3.1 x10^3/uL Monocytes # (Auto) 0.9 x10^3/uL Eosinophils # (Auto) 0.4 x10^3/uL Basophils # (Auto) 0.1 x10^3/uL Prothrombin Time 10.6 SEC Prothromb Time International Ratio 1.0 Activated Partial Thromboplast Time 25 SEC Sodium Level 137 mmol/L Potassium Level 3.4 mmol/L Chloride Level 100 mmol/L Carbon Dioxide Level 26 mmol/L Anion Gap 11 Blood Urea Nitrogen 19 mg/dL Creatinine 1.2 mg/dL Estimated GFR (Cockcroft-Gault) 57.1 BUN/Creatinine Ratio 16 Glucose Level 117 mg/dL Calcium Level 9.4 mg/dL Total Bilirubin 0.5 mg/dL Aspartate Amino Transf (AST/SGOT) 28 U/L Alanine Aminotransferase (ALT/SGPT) 24 U/L Alkaline Phosphatase 68 U/L Troponin I Quantitative < 0.017 ng/mL Total Protein 7.5 g/dL Albumin 3.3 g/dL Albumin/Globulin Ratio 0.8 Current Medications Medications (Trade) Dose Ordered Sig/Layla Route PRN Reason Start Time Stop Time Status Last Admin Dose Admin Aspirin (Children'S Aspirin) 324 mg 1X ONCE PO 04/26/19 19:30 04/26/19 19:31 DC Sodium Chloride 1,000 ml @ 100 mls/hr Q10H IV 04/26/19 19:15 04/27/19 05:14 04/26/19 19:24 Aspirin (Josef Aspirin) 325 mg STK-MED ONCE .ROUTE 04/26/19 19:20 04/26/19 19:20 DC EKG EKG [] Normal sinus rhythm a rate of 75 beats for minute, borderline left axis deviation, normal intervals. There are no acute ischemic ST/T changes. Radiology/Procedures Radiology/Procedures PROCEDURE: CT CODE STROKE HEAD WO Exam: CT head INDICATION: Right-sided facial droop TECHNIQUE: Sequential axial images through the head were obtained without the administration of IV contrast. Comparisons: 09/03/2017 FINDINGS: No focal parenchymal lesion or hemorrhage is identified. There is no midline shift or sulcal effacement. Hypodensity within the white matter of the left frontal lobe which is new when compared to the study in 2018. Omalley-white distinction is preserved. The ventricular system is within normal limits without compression hydrocephalus. The basal cisterns are well maintained. The visualized portions of the paranasal sinuses and mastoid air cells are well-pneumatized. No acute fractures. IMPRESSION: Hypodensity in the white matter of the left frontal lobe, new when compared to study in 2018. This may represent an area of subacute or chronic ischemia. Further evaluation with MRI brain without contrast is recommended. [] Course & Med Decision Making Course & Med Decision Making Pertinent Labs and Imaging studies reviewed. (See chart for details) []8:15 PM: Patient's condition remained stable. I spoke with Dr. Singh who agreed to accept the patient in transfer at [facility] for possible MRI and further neurological evaluation, per family request. Patient is not a TPA candidate due to the unknown last normal, and his symptoms are not suggestive of a large vessel occlusion at this time. Aspirin will be given. CRITICAL CARE TIME: 45 Minutes, excluding any procedures and care of other patients. Dragon Disclaimer Dragon Disclaimer This electronic medical record was generated, in whole or in part, using a voice recognition dictation system. Departure Departure: Impression: Primary Impression: Altered mental status Additional Impression: Ischemic stroke Disposition: 02 XFER S[facility]M HOSP ([facility]) Admitting Physician: Jaren Singh Condition: STABLE Referrals: ALVINA METZ MD (PCP) NIHSS - ED NIH Stroke Scale: NIH Stroke Scale Response (Comments) Value Level of Consciousness: 0 Alert/Responsive 0 LOC Questions: 2 Answers neither correct 2 LOC Commands: 0 Performs both tasks 0 Best Gaze: 0 Normal 0 Visual: 0 No visual loss 0 Facial Palsy: 0 Normal, symmetrical 0 Motor - Left Arm 0 No drift 0 Motor - Right Arm 0 No drift 0 Motor - Left Leg 0 No drift 0 Motor: Right Leg 0 No drift 0 Limb Ataxia: 0 Absent 0 Sensory: 0 No loss 0 Best Language: 1 Mild to mod aphasia 1 Dysathria: 1 Mild to moderate 1 Extinction and Inattention: 0 Normal 0 Total 4 Problem Qualifiers GENNA FLORES MD Apr 26, 2019 19:20
[2019-04-26] MEDS ORDERED: ASPIRIN 81 MG TAB.CHEW PO ONE (19:30)
[2019-04-26 19:44] LABS: BASO # 0.1 x10^3/uL (0.0-0.2); BASO % 1 % (0-3); EOS # 0.4 x10^3/uL (0.0-0.7); EOS % 3 % (0-3); HEMATOCRIT 43.5 % (39.0-53.0); HEMOGLOBIN 14.8 g/dL (13.0-17.5); LYMPH # 3.1 x10^3/uL (1.0-4.8); LYMPH % 27 % (24-48); MEAN CORPUSCULAR HEMOGLOBIN 34 pg (25-35); MEAN CORPUSCULAR HGB CONC 34 g/dL (31-37); MEAN CORPUSCULAR VOLUME 99 fL (79-100); MONO # 0.9 x10^3/uL (0.0-1.1); MONO % 8 % (0-9); NEUT # 7.1 x10^3uL (1.8-7.7); NEUT % 61 % (31-73); PLATELET COUNT 261 x10^3/uL (140-400); RED CELL DISTRIBUTION WIDTH 14.5 % (11.5-14.5); WHITE BLOOD COUNT 11.6 x10^3/uL (4.0-11.0)
[2019-04-26 19:52] LABS: ALBUMIN 3.3 g/dL (3.4-5.0); ALBUMIN/GLOBULIN RATIO 0.8 (1.0-1.7); CALCIUM 9.4 mg/dL (8.5-10.1); CREATININE 1.2 mg/dL (0.7-1.3); GFR 57.1; POTASSIUM 3.4 mmol/L (3.5-5.1); TOTAL BILIRUBIN 0.5 mg/dL (0.2-1.0); TOTAL PROTEIN 7.5 g/dL (6.4-8.2)
--- NOTE | 2019-04-26 22:57 | RAD ---
PORTABLE CHEST 1V History: Weakness Comparison: April 25, 2019 Findings: Mild elevation of the right hemidiaphragm. No consolidation or pleural effusion. Normal heart size. Prior granulomatous disease. Impression: 1. No acute cardiopulmonary process. 2. Mild elevation of the right hemidiaphragm. Electronically signed by: Joselo Garcia DO (04/26/2019 10:54 PM) [facility]
--- NOTE | 2019-04-26 23:29 | EKG ---
[address] [address] Test Date: 2019-04-26 Test Time: 20:48:06 Pat Name: IFEANYI RAMIREZ Department: Room: Gender: M Asset Management Coordinator: : 1930 Requested By: GENNA FLORES Order Number: [id number] Reading MD: Measurements Intervals [place] Rate: 75 P: 90 NE: 194 QRS: -42 QRSD: 126 T: 27 QT: 426 QTc: 479 Interpretive Statements SINUS RHYTHM ABNORMAL LEFT AXIS DEVIATION S1,S2,S3 PATTERN LEFT ANTERIOR FASCICULAR BLOCK RIGHT BUNDLE BRANCH BLOCK BIFASCICULAR BLOCK ABNORMAL ECG RI6.01 No previous ECG available for comparison
[2019-04-26 23:59] VITALS: BP 147/68
== END 2019-04-27 00:15 | disposition short-term general hospital (02) ==
LOC: ER 18:08
DX: I63.9 Cerebral infarction, unspecified (principal); R41.82 Altered mental status, unspecified; R47.81 Slurred speech; K21.9 Gastro-esophageal reflux disease without esophagitis; I10 Essential (primary) hypertension; E03.9 Hypothyroidism, unspecified; F03.90 Unspecified dementia, unspecified severity, without behavioral disturbance, psychotic disturbance, mood disturbance, and anxiety; Z87.891 Personal history of nicotine dependence; Z88.8 Allergy status to other drugs, medicaments and biological substances; Z88.6 Allergy status to analgesic agent; Z88.1 Allergy status to other antibiotic agents
CPT/HCPCS: 36415; 70450; 71045; 80053; 82947; 84484; 85025; 85610; 85730; 93005; 96360; 96361; 99291-25; J7030